=== PATIENT | male | born 2000 ===

== ENCOUNTER 2025-03-19 20:56 | Emergency (ER) | payer OTHER, BC, SELFPAY ==
[2025-03-19 20:59] VITALS: BP 153/91
[2025-03-19 21:20] LABS: % Basophils 0.8 % (0-2); % Eosinophils 3.4 % (0-6); % Immature Granulocytes 0.3 % (0-0.5); % Lymphocytes 18.9 % (20.5-51.1); % Monocytes 6.1 % (1.7-9.3); % Neutrophils 70.5 % (42.2-75.2); Absolute Basophils 0.1 10^3/uL (0-0.2); Absolute Eosinophils 0.4 10^3/uL (0-0.7); Absolute Lymphocytes 2.4 10^3/uL (1.2-3.4); Absolute Monocytes 0.8 10^3/uL (0.1-0.6); Hematocrit 39.7 % (39.0-52.0); Hemoglobin 14.6 g/dL (13.0-18.0); Mean Corp Hgb Conc. 36.8 g/dL (33.0-37.0); Mean Corpuscular Hgb 31.6 pg (27.0-31.0); Mean Corpuscular Volume 85.9 fL (80.0-94.0); Mean Platelet Volume 10.3 fL (7.4-10.4); Nucleated Red Blood Cells % 0 % (-); Platelet Count 330 10^3/uL (130-400); Red Blood Cell Count 4.62 10^6/uL (4.70-6.10); Red Cell Dist. Width 11.4 % (11.5-14.5); White Blood Cell Count 12.8 10^3/uL (4.8-10.8)
[2025-03-19 21:30] LABS: ALT (SGPT) 68 U/L (0-50); AST (SGOT) 37 U/L (17-59); Alkaline Phosphatase 71 U/L (38-126); Blood Urea Nitrogen 17 mg/dl (9-20); Calcium 10.2 mg/dl (8.4-10.2); Carbon Dioxide 26 mmol/L (22-30); Chloride 109 mmol/L (98-107); Glucose 111 mg/dl (70-99); Potassium 4.5 mmol/L (3.5-5.1); Sodium 142 mmol/L (135-145); Total Bilirubin 0.9 mg/dl (0.2-1.3); Total Protein 7.5 g/dl (6.3-8.2); eGFR > 60.00
[2025-03-19 21:43] LABS: Troponin I < 0.012 ng/ml
[2025-03-19 23:35] VITALS: BP 142/72
[2025-03-20 01:06] VITALS: BP 157/88
--- NOTE | 2025-03-20 01:06 | ED.GENMED ---
History of Present Illness
General
Chief Complaint: Chest Pain
Time Seen by Provider: 03/20/25 00:06
History of Present Illness
History of Present Illness:
Patient is a 24-year-old man is otherwise healthy presenting to the emergency department chest pain. Patient states for the past 3 weeks he has had midsternal chest pain. It feels as a pressure. It is not exertional. It is not pleuritic. No
personal or family history of cardiac disease. Patient states that he is still able to exercise as normal without any difficulty. He does note that he drinks about 500 mg of caffeine at least and he does get palpitations with the chest pain.
However today he had the chest pain without palpitations. He did not think anything of it but his who is in the medical field told him to come to get evaluated. He also notes that he has been having congestion rhinorrhea postnasal drip and
attributed to allergies. However notes that occasionally he will have wheezing. He does not smoke. He has not vape. No history of asthma. He also notes that has been having intermittent melanotic stool with occasional bloating. He has not
taken any antacids. At this time he has very vague chest pain but otherwise is asymptomatic. He denies any leg swelling hemoptysis long car rides. No history of blood clots. 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
takes a break every 2 hours and walks around
Phy Exam
Physical Exam
Physical Exam:
GENERAL: in no acute distress
HEENT: normocephalic, extraocular movements intact, moist oral mucosa
NECK: normal inspection
RESPIRATORY: no respiratory distress, clear to auscultation bilaterally, no wheezing
CARDIOVASCULAR: regular rate and rhythm
ABDOMEN/: soft, non-distended, non-tender to palpation, no rebound or guarding
EXTREMITIES: non-tender, no edema/swelling
NEUROLOGIC: awake and alert, moves all extremities
SKIN: warm
Scores
Heart Score for Chest Pain Patients
STEMI patient?: No
History: Slightly or Non-Suspicious
ECG: Nonspecific Repolarization
Age: </= 45 years
Risk Factors: No Risk Factors
Troponin: </= Normal Limit
Heart Score for Chest Pain Patients: 1
Heart Score Risk: 2.5% MACE over next 6 weeks
Course
Orders/Labs/Results
Orders:
Orders
03/19/25 21:02
Electrocardiogram (*1) Urgent
Reason for Study: Chest Pain
EKG- Treatment ONCE
03/19/25 21:08
Complete Blood Count/With Diff Urgent
Comprehensive Metabolic Panel Urgent
Troponin I Urgent
Abnormal Lab Results
03/19/25
21:08
WBC 12.8 H 10^3/uL
(4.8-10.8)
RBC 4.62 L 10^6/uL
(4.70-6.10)
MCH 31.6 H pg
(27.0-31.0)
RDW 11.4 L %
(11.5-14.5)
Absolute Neuts (auto) 9.0 H 10^3/uL
(1.4-6.5)
Absolute Monos (auto) 0.8 H 10^3/uL
(0.1-0.6)
Lymphocytes % 18.9 L %
(20.5-51.1)
Chloride 109 H mmol/L
(98-107)
Glucose 111 H mg/dl
(70-99)
ALT 68 H U/L
(0-50)
03/19/25 21:08
03/19/25 21:08
Vital Signs
Initial and Last Documented VS:
Initial Vital Signs
Temp Pulse Resp BP Pulse Ox
99 F 80 16 153/91 99
03/19/25 20:59 03/19/25 20:59 03/19/25 20:59 03/19/25 20:59 03/19/25 20:59
Last Documented Vital Signs
Temp Pulse Resp BP Pulse Ox
99 F 67 18 157/88 98
03/19/25 20:59 03/20/25 01:06 03/20/25 01:06 03/20/25 01:06 03/20/25 01:06
MDM/Problems Addressed
Differential Diagnosis Includes:
Patient is a 24-year-old man presenting to the emergency department with many weeks of chest pain, URI symptoms, and mild GI symptoms. Vitals are notable for temperature of 99 and exam is otherwise reassuring. Differential is broad but consists of
ACS, PUD, PE, pericarditis, pneumonia, URI. History and exam less likely PE as patient is not hypoxic tachycardic and does not have any signs or symptoms or risk factors to suggest PE. History exam less likely be ACS as well given the patient is
otherwise healthy with no risk factors. He does have allergies versus viral symptoms which could explain his intermittent wheezing. Blood work was obtained prior to my evaluation. He does have a white count of 12.8. He is afebrile with no
significant respiratory symptoms. Could be secondary to this virus. I did offer chest x-ray the patient declined at this time. My suspicion for pneumonia is low given that his lungs were clear to auscultation. Given the intermittent wheezing
with his symptoms we will send a prescription over for albuterol. Otherwise his troponin was unremarkable. His EKG per my interpretation with T wave flattening laterally. He is chest pain-free at this time with no risk factors. He will follow-up
with his PCP. Also discussed the bloating melanotic stool as concern for upper GI bleed though his hemoglobin is stable and he is asymptomatic. He will start Pepcid and omeprazole. He will follow-up with GI.
*Critical Care Note
Total Time (30-74mins, 75-104mins- exclusive of procedures): Not Applicable
ED Attending Note
-
Portions of this chart may have been created with voice recognition software.� Occasional wrong word or��sound alike� substitutions may have occurred due to the inherent limitations of voice recognition software.
Discharge Plan
Departure
Patient Disposition: Home (Routine Discharge)
Date of Disposition: 03/20/25
Time of Disposition: 00:58
Patient with high blood pressure during this ER visit?: No
Discharge Problem:
Chest pain, Acid reflux
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
Prescriptions:
New
ProAir RespiClick 90 mcg/actuation aerosol powdr breath activated
2 inh inhalation Q4H PRN (Reason: shortness of breath or wheezing) Qty: 1 0RF
Referrals:
NONE,* [Family Provider] -
Activity Restrictions/Additional Instructions:
You were evaluated in the Emergency Department today for chest pain. Your evaluation has shown no signs of medical conditions requiring emergent intervention at this time, however we recommend that you follow up with your primary care physician or
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 Please make sure you start taking Pepcid and omeprazole and follow-up with a GI doctor as well. If you start to wheeze again please use albuterol as prescribed. Please
add an antihistamine as well for your allergies.
If you start to develop fevers chills worsening cough or worsening difficulty breathing please make sure you are evaluated and we will obtain a chest x-ray at that time.
Please schedule an appointment for follow up with your primary care physician as soon as possible.
Return to the Emergency Department if you experience worsening or uncontrolled chest pain, shortness of breath, light headedness, feeling faint, nausea, vomiting, or any other concerning symptoms.
Thank you for choosing us for your care.
Interventions
Interventions:
*Risk Screen - Suicide Last Done: 03/19/25 20:59
*Neglect/Abuse Screening Last Done: 03/19/25 20:59
*Nursing Disposition Last Done: 03/20/25 01:08
ED- Cardiac Assessment Last Done: 03/20/25 00:15
Discharge Date and Time
Discharge Date/Time: 03/20/25 01:08
Print Language: [id number]
== END 2025-03-20 01:08 | disposition home or self-care (01) ==
LOC: EMR 20:56
PROVIDERS: Student in an Organized Health Care Education/Training Program; EMERGENCY PHYSICIAN Student in an Organized Health Care Education/Training Program
DX: R07.89 Other chest pain (principal); R00.2 Palpitations; R09.82 Postnasal drip; J34.89 Other specified disorders of nose and nasal sinuses; K92.1 Melena; R14.0 Abdominal distension (gaseous); R06.2 Wheezing; K21.9 Gastro-esophageal reflux disease without esophagitis
CPT/HCPCS: 99283; 80053; 84484; 85025; 93005